=== PATIENT | male | born 1955 | race Caucasian/White ===

== ENCOUNTER 2016-11-08 20:21 | Emergency (ER) | payer SELFPAY ==
[~2016-11-08] VITALS: Ht 185.4 cm; Wt 86.2 kg
[2016-11-08] MEDS ORDERED: hydrOXYzine HCL 25 MG TABLET PO ONE (21:35)
[2016-11-08] MEDS ORDERED: methylPREDNISolone SOD SUCC PF 125 MG/2 ML VIAL. IV ONE (21:35)
[2016-11-08] MEDS ORDERED: IV NORMAL SALINE 1,000ML 1,000 ML IV SCH (21:35)
[2016-11-08] MEDS ORDERED: diphenhydrAMINE 50 MG/ML VIAL IVP ONE (21:35)
[2016-11-08] MEDS ORDERED: FAMOTIDINE 20 MG/2 ML VIAL IVP ONE (21:35)
[2016-11-08 22:02] LABS: BASO # 0.1 x10^3/uL (0.0-0.2); BASO % 1 % (0-3); EOS # 0.8 x10^3/uL (0.0-0.7); EOS % 12 % (0-3); HEMATOCRIT 42.1 % (39.0-53.0); HEMOGLOBIN 14.3 g/dL (13.0-17.5); LYMPH # 1.7 x10^3/uL (1.0-4.8); LYMPH % 24 % (24-48); MEAN CORPUSCULAR HEMOGLOBIN 31 pg (25-35); MEAN CORPUSCULAR HGB CONC 34 g/dL (31-37); MEAN CORPUSCULAR VOLUME 90 fL (79-100); MONO # 0.8 x10^3/uL (0.0-1.1); MONO % 12 % (0-9); NEUT # 3.6 x10^3uL (1.8-7.7); NEUT % 51 % (31-73); PLATELET COUNT 246 x10^3/uL (140-400); RED CELL DISTRIBUTION WIDTH 13.2 % (11.5-14.5)
[2016-11-08 22:18] LABS: AMPHETAMINE/METHAMPHETAMINE NEG (NEG); BARBITURATES NEG (NEG); BENZODIAZEPINES NEG (NEG); CANNABINOIDS NEG (NEG); COCAINE NEG (NEG); METHADONE NEG (NEG); OPIATES NEG (NEG); PHENCYCLIDINE NEG (NEG)
[2016-11-08 22:25] LABS: ALBUMIN 3.4 g/dL (3.4-5.0); DIRECT BILIRUBIN 0.2 mg/dL (0.0-0.2); TOTAL BILIRUBIN 0.3 mg/dL (0.2-1.0); TOTAL PROTEIN 6.5 g/dL (6.4-8.2)
[2016-11-08] MEDS ORDERED: INSULIN REGULAR 100 UNIT/ML 10ML VIAL. SQ ONE (22:30)
[2016-11-08] MEDS ORDERED: INSULIN REGULAR 100 UNIT/ML 10ML VIAL. IV ONE (22:30)
[2016-11-08 22:36] LABS: BILIRUBIN,URINE NEG (NEG); CLARITY,URINE CLEAR; COLOR,URINE YELLOW; GLUCOSE,URINE >=1000 mg/dL (NEG); NITRITE,URINE NEG (NEG); RBC,URINE OCC /HPF (0-2); UROBILINOGEN,URINE 0.2 mg/dL (0.2 mg/dL); WBC,URINE OCC /HPF (0-4)
[2016-11-08 22:37] LABS: BACTERIA,URINE 0 /HPF (0-FEW); SQUAMOUS EPITHELIAL CELL,UR FEW /LPF
[2016-11-08 22:38] LABS: HYALINE CASTS, URINE OCC /HPF
--- NOTE | 2016-11-08 22:53 | EKG ---
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
--- NOTE | 2016-11-08 22:59 | RAD ---
PROCEDURE Venous duplex examination of the right lower extremity HISTORY Rightleg swelling and pain for 2 days. Nonhealing wound. FINDINGS Duplex sonography of the proximal aspect of the greater saphenous vein and the proximal aspect of the profunda femoral vein and the entire length of the common femoral and superficial femoral and popliteal veins and the tibioperoneal trunk and the proximal aspect of the posterior tibial and peroneal veins of the right leg was performed. Normal compressibility, augmentation of color Doppler flow after calf compression, and respiratory variation of Doppler flow is seen. Thus, there are no sonographic findings of deep venous thrombosis within these veins. IMPRESSION Negative for Deep Venous Trombosis. Reactive right groin lymphadenopathy is seen. This may be noted with cellulitis. Electronically signed by: Rodrick Xavier MD (November 08, 2016 22:58:03)
--- NOTE | 2016-11-08 23:37 | PHYS DOC ---
General Chief Complaint: SKIN RASH/ABSCESS Stated Complaint: RASH,SWELLING OF FOOT AND LEG Time Seen by MD: 21:06 Source: patient Exam Limitations: no limitations Problems: History of Present Illness Initial Comments Pt is 61/M to ED c/o rash. Pt states few weeks ago he hit right espinoza on trailer causing a cut. Since then redness/pain/swelling, pt also developed whole body rash. Right leg problem anterior espinoza, diagnosed cellulitis 1 week ago [facility] put on bactrim ds. Pt noncompliant DM, hasn't taken meds in years but put on glipizide/metformin. 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 Whole body rash is small 0.5cm scabbed over primarily arms/legs, but pt says he has new lesions on his chest. 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 He c/o itching, no sob/cough/trammell. No fever/chills/myalgias/cp/sob. Pt states since beginning bactrim his cellulitis RLE has improved dramatically, taking OTC benadryl not helping with itching. Timing/Duration: 1 week Severity: moderate Modifying Factors: improves with cold therapy, worse with movement, improves with rest Associated Symptoms: malaise, rash, other Allergies: Coded Allergies: ibuprofen (Verified Allergy, Unknown, 11/08/16) Past Medical History Medical History: other (DM2) Surgical History: noncontributory Social History Smoker: cigarettes Alcohol: occasionally Drugs: marijuana Review of Systems Constitutional: denies chills, denies fever, malaise EENTM: denies ear pain, denies nose pain, denies throat swelling, denies mouth swelling Respiratory: denies cough, denies shortness of breath, denies wheezing Cardiovascular: denies chest pain, denies palpitations, denies syncope Gastrointestinal: denies abdominal pain, denies nausea, denies vomiting Musculoskeletal: see HPI, denies back pain, denies joint swelling, denies neck pain Skin: see HPI Psychiatric/Neurological: denies headache, denies numbness, denies paresthesia Physical Exam General Appearance: moderate distress (with itching) Eyes: bilateral eye normal inspection, bilateral eye PERRL, bilateral eye EOMI Ear, Nose, Throat: hearing grossly normal, normal ENT inspection, normal pharynx Neck: non-tender, supple Respiratory: normal breath sounds, no respiratory distress Cardiovascular: normal peripheral pulses, regular rate, rhythm Gastrointestinal: non tender, soft Back: no CVA tenderness, no vertebral tenderness Extremities: other (cellulitis healing right ant espinoza, redness appears fading no warmth no purulence) Neurologic/Psychiatric: brand lead II-XII nml as tested, no motor/sensory deficits, alert, normal mood/affect, oriented x 3 Skin: warm/dry (diffuse small scabbed lesions over skin surface some with excoriations c/w itching) Orders, Labs, Meds EKG: NSR 70 bpm, no acute ischemic changes PATIENT: LEXIS NORMAN ACCOUNT: [id number] : 1955 LOCATION: ER AGE: 61 SEX: M EXAM STATUS: PRE ER ORD. PHYSICIAN: LUCIANO LEONARD DO REASON: R calf swelling PROCEDURE: VENOUS LOWER EXTREMITY RIGHT PROCEDURE Venous duplex examination of the right lower extremity HISTORY Rightleg swelling and pain for 2 days. Nonhealing wound. FINDINGS Duplex sonography of the proximal aspect of the greater saphenous vein and the proximal aspect of the profunda femoral vein and the entire length of the common femoral and superficial femoral and popliteal veins and the tibioperoneal trunk and the proximal aspect of the posterior tibial and peroneal veins of the right leg was performed. Normal compressibility, augmentation of color Doppler flow after calf compression, and respiratory variation of Doppler flow is seen. Thus, there are no sonographic findings of deep venous thrombosis within these veins. IMPRESSION Negative for Deep Venous Trombosis. Reactive right groin lymphadenopathy is seen. This may be noted with cellulitis. Electronically signed by: Pablo Xavier MD (November 08, 2016 22:58:03) DICTATED AND SIGNED BY: PABLO XAVIER MD DATE: 11/08/16 0070 CC: LUCIANO LEONARD DO ~ glucose 310, BUN 25, Cr 0.8, d-dimer 1.77, UA > 1000 glu CXR: no acute process Pt with good relief of itching in ED. No cp/sob, PE not likely. Discussed tight glucose control, discussed prednisone and hyperglycemia, need for early f/ u PCP to arrange diabetic testing supplies. Pt expressed agreement/ understanding with treatment plan, glucose improved with insulin see nn Departure Time of Disposition: 23:59 Disposition: 01 HOME, SELF-CARE Diagnosis: R Leg Cellulitis Inflammatory Rash (oak mites) DM2 Condition: STABLE Additional Instructions: No work tomorrow. Aggressive hydration with gatorade, water. OTC pepcid while taking prednisone. May also consider OTC topical benadryl. Remain in cool temperature environment for optimal symptom control. Stop smoking, seek medical assistance if necessary. Continue current medications including bactrim ds Rx: prednisone, hydroxyzine, bactroban Follow up with [facility] tomorrow for recheck of symptoms and blood glucose as well as home glucometer and supplies/insulin. Return to ED with new or changing symptoms. LUCIANO LEONARD DO November 08, 2016 23:37
[2016-11-09 00:30] VITALS: BP 139/72
[2016-11-09] MEDS ORDERED: predniSONE 20 MG TABLET PO ONE (00:30)
--- NOTE | 2016-11-09 07:29 | RAD ---
Portable chest, 11/08/2016: History: Extremity swelling, body rash Comparison is made to a study from 08/27/2011. The heart size and pulmonary vascularity are normal. The lungs are clear. There is no evidence of pleural fluid. IMPRESSION: No acute cardiopulmonary abnormality is detected.
[2016-11-19 10:22] LABS: HEMOGLOBIN ISTAT 14.6 gm/dL; POTASSIUM ISTAT 4.1 mmol/L (3.5-5.0)
== END 2016-11-09 00:32 | disposition home or self-care (01) ==
LOC: ER 20:21
DX: L03.115 Cellulitis of right lower limb (principal); E11.9 Type 2 diabetes mellitus without complications; F17.210 Nicotine dependence, cigarettes, uncomplicated; F12.10 Cannabis abuse, uncomplicated; Z88.6 Allergy status to analgesic agent
CPT/HCPCS: 36415; 71010; 80076; 80305; 81001; 82550; 82947; 83880; 84484; 85027; 85379; 93005; 93971; 96361; 96372; 96374; 96375; 99285; J1200; J1815; J2930; J7512; S0028; 80047; G0481; J7030